=== PATIENT | female | born 1930 | race Caucasian/White ===

== ENCOUNTER 2019-02-02 12:28 | Emergency (ER) | payer MEDICARE | END 2019-02-02 13:08 | disposition home or self-care (01) | LOC: SCSER 12:28 | DX: J32.9 Chronic sinusitis, unspecified (principal); E78.5 Hyperlipidemia, unspecified; I10 Essential (primary) hypertension; J45.909 Unspecified asthma, uncomplicated | CPT/HCPCS: 99282 ==